=== PATIENT | male | born 1935 | race Caucasian/White ===

== ENCOUNTER 2018-05-26 17:21 | Inpatient (IN) | payer MEDICARE ==
[~2018-05-26] VITALS: Ht 177.8 cm; Wt 68.0 kg
--- NOTE | 2018-05-26 17:26 | NUR ---
PT BIB FAMILY C/O DIFFUSED ABDOMINAL PAIN, NAUSEA AND VOMITING SINCE YESTERDAY PAIN SCALE 5/10, PT IS AAOX4, NOT IN RESPIRATORY DISTRESS, KEPT RESTED AND COMFORTABLE, WILL CONTINUE TO MONITOR.
--- NOTE | 2018-05-26 17:32 | NUR ---
DR. DOWNEY AT BEDSIDE FOR EVAL.
--- NOTE | 2018-05-26 17:41 | NUR ---
LABS DRAWNED AND SENT TO LAB.
[2018-05-26] MEDS ORDERED: ONDANSETRON HCL/PF 4 MG/2 ML VIAL IVP ONE (18:00)
[2018-05-26] MEDS ORDERED: ONDANSETRON HCL/PF 4 MG/2 ML VIAL ONE (18:03)
[2018-05-26 18:10] LABS: BASOPHILS # (AUTO) 0.1 /CMM (0.0-0.2); BASOPHILS % (AUTO) 0.6 % (0.0-2.0); HEMATOCRIT 43 % (39-51); HEMOGLOBIN 14.2 g/dL (13.5-17.5); LYMPHOCYTES # (AUTO) 0.8 /CMM (0.8-4.8); LYMPHOCYTES % (AUTO) 6.7 % (20.0-44.0); MEAN CORPUSCULAR HGB CONC 33 g/dl (31.0-36.0); MEAN CORPUSCULAR VOLUME 90 fL (80-96); MONOCYTES # (AUTO) 0.7 /CMM (0.1-1.30); MONOCYTES % (AUTO) 6.3 % (2.0-12.0); NEUTROPHILS # (AUTO) 9.6 /CMM (1.8-8.9); NEUTROPHILS % (AUTO) 85.4 % (43.0-81.0); PLATELET COUNT (AUTO) 250 /CMM (150-450); RED BLOOD CELL COUNT(AUTO) 4.82 MIL/uL (4.5-6.0); WHITE BLOOD COUNT (AUTO) 11.2 K/uL (4.3-11.0)
[2018-05-26 18:18] LABS: CALCIUM, SERUM 9.3 mg/dL (8.5-10.1); CARBON DIOXIDE 31 mmol/L (21-32); CHLORIDE 99 mmol/L (98-107); GLUCOSE 111 mg/dL (74-106); POTASSIUM 3.9 mmol/L (3.5-5.1); SODIUM SERUM 137 mmol/L (136-145); UREA NITROGEN, BLOOD 20 mg/dL (7-18)
--- NOTE | 2018-05-26 18:24 | NUR ---
URINAL GIVEN BUT UNABLE TO GIVE URINE SPECIMEN.
[2018-05-26 18:25] LABS: ALANINE AMINOTRANSFERASE 11 U/L (12-78); ALBUMIN 3.7 g/dL (3.4-5.0); ALKALINE PHOSPHATASE 97 U/L (46-116); ASPARTATE AMINOTRANSFERASE 17 U/L (15-37); BILIRUBIN,DIRECT 0.2 mg/dL (0.0-0.2); LIPASE 85 U/L (73-393); TOTAL PROTEIN, SERUM 7.7 g/dL (6.4-8.2)
--- NOTE | 2018-05-26 19:13 | NUR ---
ENDORSED TO CHAVO ROJO FOR REGGIE.
--- NOTE | 2018-05-26 19:13 | NUR ---
REC'D ENDORSEMENT FROM CHAVO CLAYTON FOR REGGIE
--- NOTE | 2018-05-26 19:20 | NUR ---
INTRODUCED MYSELF TO PT AND DAUGHTER. PT LAYING COMFORTABLY IN BED, NO COMPLAINTS AT THIS TIME. WILL CONT TO MONITOR.
[2018-05-26] MEDS ORDERED: PIPERACILLIN /TAZOBACTAM 3.375 G VIAL IV ONE (19:29)
[2018-05-26] MEDS ORDERED: MORPHINE SULFATE INJ 2 MG/ML DISP.SYRIN IV ONE (19:30)
[2018-05-26] MEDS ORDERED: PIPERACILLIN /TAZOBACTAM 3.375 G in IV D5W 50 ML IV ONE (19:30)
[2018-05-26] MEDS ORDERED: IV D5/0.45 NACL 1,000 ML IV PRN (19:41)
--- NOTE | 2018-05-26 19:46 | NUR ---
ADMIT TO ROOM 311-2 MED SURG DX SMALL BOWEL OBSTRUCTION ADMITTING ALPESH GATES
[2018-05-26] MEDS ORDERED: MORPHINE SULFATE INJ 4 MG/ML DISP.SYRIN ONE (19:47)
[2018-05-26] MEDS ORDERED: ONDANSETRON HCL/PF 4 MG/2 ML VIAL IVP PRN (20:00)
[2018-05-26] MEDS ORDERED: ACETAMINOPHEN 325 MG TABLET PO PRN (20:00)
[2018-05-26] MEDS ORDERED: MAG HYDROX/AL HYDROX/SIMETH 30 ML UDC PO PRN (20:00)
[2018-05-26] MEDS ORDERED: Z GUARD REMEDY 2 OZ OINT TP PRN (20:00)
[2018-05-26] MEDS ORDERED: MORPHINE SULFATE INJ 2 MG/ML DISP.SYRIN IV PRN (20:00)
[2018-05-26] MEDS ORDERED: MAGNESIUM HYDROXIDE 30 ML UDC PO PRN (20:00)
[2018-05-26] MEDS ORDERED: DIATR MEGLU/DIATRIZOATE SODIUM 120 ML BOTTLE (GASTROGRAPHIN) ONE (20:06)
--- NOTE | 2018-05-26 20:15 | NUR ---
NG TUBE INSERTED INTO LEFT NARE AT 50. PLACEMENT VERIFIED BY AUSCULTATION. ATTACHED TO LOW-INTERMITTENT SUCTION PER MD ORDER. PT TOLERATED WELL.
--- NOTE | 2018-05-26 20:34 | NUR ---
REPORT GIVEN TO CHAVO BENITEZ FOR 311-2
--- NOTE | 2018-05-26 22:50 | NUR ---
RN MS ADMITTING NOTES RECEIVED PT FROM ER VIA PJ ACCOMPANIED BY DAUGHTER. PT IN BED, AWAKE, ALERT AND ORIENTEDX4 VERBALLY RESPONSIVE AND ABLE TO MAKE NEEDS KNOWN. BREATHING EVEN AND UNLABORED ON ROOM AIR. NG TUBE ON THE LEFT NARES NO SUCTION AT THE MOMENT, AWAITING ADDITIONAL IMAGING. IV ACCESS ON THE RIGHT AC 20G PATENT AND FLUSHING TO INFUSE D5 1/2NS @75ML/HR. PT SKIN INTACT, MINIMAL EDEMA ON THE LEFT LOWER EXTREMITY. MED RECON PENDING, DAUGHTER TO BRING MEDS IN THE MORNING. PT ORIENTED TO ROOM AND PROTOCOL, KEPT NPO AFTER MIDNIGHT. BED IN LOWEST LOCKED POSITION, CALL LIGHT WITHIN REACH AT ALL TIMES, WILL CONTINUE TO MONITOR
[2018-05-26 23:00] VITALS: BP 155/71
[2018-05-27] MEDS ORDERED: MORPHINE SULFATE INJ 4 MG/ML DISP.SYRIN IV PRN (01:00)
--- NOTE | 2018-05-27 06:03 | NUR ---
RN MS CLOSING NOTES PT REMAINS IN BED, SLEEPING, EASILY AROUSED TO NAME CALL. BREATHING EVEN AND UNLABORED ON ROOM AIR, NO SOB. DENIES PAIN OR DISCOMFORT AT THIS TIME. NG TUBE ON THE LEFT NARES NO SUCTION, AWAITING MORNING IMAGING. IV ACCESS ON THE R AC 20G WITH D5 1/2NS @75ML/HR. 2 BM DURING SHIFT. BED IN LOWEST LOCKED POSITION, CALL LIGHT WITHIN REACH AT ALL TIMES, WILL ENDORSE TO DAY NURSE FOR REGGIE.
[2018-05-27 06:28] LABS: BASOPHILS % (AUTO) 0.5 % (0.0-2.0); EOSINOPHILS % (AUTO) 0.6 % (0.0-6.0); HEMATOCRIT 41 % (39-51); HEMOGLOBIN 13.5 g/dL (13.5-17.5); LYMPHOCYTES # (AUTO) 0.8 /CMM (0.8-4.8); LYMPHOCYTES % (AUTO) 8.2 % (20.0-44.0); MEAN CORPUSCULAR HGB CONC 33 g/dl (31.0-36.0); MEAN CORPUSCULAR VOLUME 89 fL (80-96); MONOCYTES # (AUTO) 0.8 /CMM (0.1-1.30); MONOCYTES % (AUTO) 8.3 % (2.0-12.0); NEUTROPHILS # (AUTO) 7.8 /CMM (1.8-8.9); NEUTROPHILS % (AUTO) 82.4 % (43.0-81.0); PLATELET COUNT (AUTO) 244 /CMM (150-450); RED BLOOD CELL COUNT(AUTO) 4.65 MIL/uL (4.5-6.0); WHITE BLOOD COUNT (AUTO) 9.5 K/uL (4.3-11.0)
[2018-05-27 06:44] LABS: CALCIUM, SERUM 8.3 mg/dL (8.5-10.1); CARBON DIOXIDE 28 mmol/L (21-32); CHLORIDE 104 mmol/L (98-107); CREATININE 1.2 mg/dL (0.6-1.3); GLUCOSE 117 mg/dL (74-106); MAGNESIUM 2.2 mg/dL (1.8-2.4); PHOSPHORUS 3.7 mg/dL (2.5-4.9); POTASSIUM 3.7 mmol/L (3.5-5.1); SODIUM SERUM 141 mmol/L (136-145); UREA NITROGEN, BLOOD 19 mg/dL (7-18)
[2018-05-27 06:50] LABS: CHOLESTEROL 169 mg/dL (<200); HDL CHOLESTEROL 50 mg/dL (40-60); LDL 110 mg/dL (0-99); THYROID STIMULATING HORMONE 2.121 uIU/mL (0.358-3.74); TRIGLYCERIDES 86 mg/dL (30-150)
--- NOTE | 2018-05-27 07:00 | NUR ---
MS RN OPENING NOTES PT IN BED, ALERT/ORIENTED X4. BREATHING EVEN AND UNLABORED ON ROOM AIR. DENIES PAIN OR DISCOMFORT AT THIS TIME. NG TUBE ON THE LEFT NARES NO SUCTION, AWAITING MORNING IMAGING. IV ACCESS ON THE R AC 20G WITH D5 1/2NS @75ML/HR.BED IN LOWEST LOCKED POSITION, CALL LIGHT WITHIN REACH. WILL CONTINUE TO MONITOR
[2018-05-27] MEDS ORDERED: PANTOPRAZOLE 40 MG VIAL IV SCH (07:30)
--- NOTE | 2018-05-27 07:35 | NUR ---
RECEIVED VERBAL ORDER FROM : SMALL BOWEL FOLLOW -THROUGH VIA NG TUBE . DX SBO
[2018-05-27 08:00] VITALS: BP 164/81
[2018-05-27] MEDS ORDERED: LEVO75TA7 PO (08:00)
[2018-05-27] MEDS ORDERED: AMLO10TA6 PO (08:00)
[2018-05-27] MEDS ORDERED: ASPI-1169 PO (08:00)
[2018-05-27] MEDS ORDERED: FERR325T23 PO (08:00)
[2018-05-27] MEDS ORDERED: FLUO-119 PO (08:00)
[2018-05-27] MEDS ORDERED: LOSA100T31 PO (08:00)
[2018-05-27] MEDS ORDERED: ATOR40TA PO (08:00)
--- NOTE | 2018-05-27 08:29 | NUR ---
PT REFUSED NICOTINE. PT DOES NOT SMOKE .
[2018-05-27] MEDS ORDERED: NICOTINE PATCH (14MG) 14 MG PATCH.TD24 TD SCH (09:00)
--- NOTE | 2018-05-27 15:45 | NUR ---
D/C NOTES PT AMBULATORY AND LEFT UNIT ACCOMPANIED BY DAUGHTER VIA [employer] CAR. PT A/O X4 WITH NO S/S DISTRESS NOTED. VS ARE STABLE AND WNR. IV ASSESS REMOVED. D/C INSTRUCTIONS GIVEN TO PATIENT.PATIENT VERBALIZED UNDERSTANDING. ALL BELONGINGS RETURNED TO THE PATIENT. BELONGINGS LIST SIGHED. PT WILL F/U WITH PMD IN ONE WEEK.
== END 2018-05-27 15:45 | disposition home or self-care (01) | DRG 389 ==
LOC: ER 17:26 → MED 20:21
PROVIDERS: ADMIT Registered Nurse; ATTEND Nurse Practitioner Acute Care
DX: K56.609 Unspecified intestinal obstruction, unspecified as to partial versus complete obstruction (principal); R18.8 Other ascites; I25.10 Atherosclerotic heart disease of native coronary artery without angina pectoris; E86.0 Dehydration; E78.5 Hyperlipidemia, unspecified; I10 Essential (primary) hypertension; K57.30 Diverticulosis of large intestine without perforation or abscess without bleeding; K40.90 Unilateral inguinal hernia, without obstruction or gangrene, not specified as recurrent; K44.9 Diaphragmatic hernia without obstruction or gangrene; F17.210 Nicotine dependence, cigarettes, uncomplicated; F41.9 Anxiety disorder, unspecified; Z86.718 Personal history of other venous thrombosis and embolism; Z95.1 Presence of aortocoronary bypass graft; Z95.5 Presence of coronary angioplasty implant and graft; D72.829 Elevated white blood cell count, unspecified; R73.9 Hyperglycemia, unspecified
CPT/HCPCS: 36415; 71045-TC; 74250-TC; 80048-TC; 80061-TC; 80076-TC; 83690-TC; 83735-TC; 84100-TC; 84443-TC; 85025-TC; 85730-TC; 86850-TC; 87081-TC; A4606; C9113; G0378; J2270; J2405; J2543; J3490; J7060; Q9963; Z7610